=== PATIENT | male | born 1940 | race Caucasian/White ===

== ENCOUNTER 2023-11-24 09:02 | Outpatient (OUT) | payer OTHER, SELFPAY ==
[2023-11-24 09:28] LABS: Basophils Absolute Auto 0.1 10^3/uL (0.0-0.1); Basophils Percent Auto 1.2 % (0.2-2.0); Eosinophils Absolute Auto 0.4 10^3/uL (0.0-0.7); Eosinophils Percent Auto 6.3 % (0.9-7.0); Hematocrit 46.8 % (42.0-54.0); Hemoglobin 15.4 g/dL (14.0-18.0); Immature Granulocytes Abs Auto 0.02 10^3/uL (0.00-0.03); Immature Granulocytes Pct Auto 0.3 % (0.0-0.5); Lymphocytes Absolute Auto 1.7 10^3/uL (1.2-3.8); Mean Corpuscular HGB Conc 32.9 g/dL (29.9-35.2); Mean Corpuscular Hemoglobin 30.1 pg (25.9-34.0); Mean Corpuscular Volume 91.4 fL (80.0-94.0); Mean Platelet Volume 10.4 fL (9.5-13.5); Monocytes Absolute Auto 0.7 10^3/uL (0.3-0.8); Monocytes Percent Auto 12.6 % (1.7-12.0); Neutrophils Absolute Auto 2.9 10^3/uL (1.4-6.5); Neutrophils Percent Auto 50.6 % (43.0-75.0); Platelet Count 205 10^3/uL (150-450); Red Blood Count 5.12 10^6/uL (4.70-6.10); Red Cell Distribution Width 12.8 % (11.0-15.0); White Blood Count 5.7 10^3/uL (4.0-11.0)
[2023-11-24 10:20] LABS: Estimated Average Glucose 108 mg/dL; Glycohemoglobin A1C 5.4 % (4.5-6.2)
[2023-11-24 11:09] LABS: Alanine Aminotransferase 22 U/L (16-63); Albumin Level 3.5 g/dL (3.4-5.0); Alkaline Phosphatase 63 U/L (46-116); Anion Gap 11.1; Aspartate Amino Transferase 14 U/L (15-37); BUN Creatinine Ratio 18.3; Bilirubin Total 0.8 mg/dL (0.2-1.0); Calcium 9.1 mg/dL (8.5-10.1); Carbon Dioxide 30.4 mmol/L (21.0-32.0); Chloride 104 mmol/L (98-107); Chol HDL Ratio 4.5; Cholesterol 162 mg/dL (<=200); Estimated GFR (African America 58 (>=60); Estimated GFR (Non-African Ame 48 (>=60); Free T3 3.06 pg/mL (2.18-3.98); Globulin 3.4 g/dL; Glucose 113 mg/dL (74-106); HDL Cholesterol 36 mg/dL (40-60); Potassium 4.5 mmol/L (3.5-5.1); Sodium 141 mmol/L (136-145); Thyroid Stimulating Hormone 2.661 uIU/mL (0.358-3.740); Total Protein 6.9 g/dL (6.4-8.2); Triglycerides 144 mg/dL (<=150); VLDL CHOLESTEROL 28.8 mg/dL
[2023-11-25 04:07] LABS: PSA, Free 0.06 ng/mL; Prostate Specific Ag 0.2 ng/mL (0.0-4.0)
== END 2023-11-24 09:03 | disposition home or self-care (01) ==
LOC: LAB 09:06
PROVIDERS: PCP Family Medicine; Visit Provider Family Medicine
DX: R53.83 Other fatigue (principal); I10 Essential (primary) hypertension; K21.9 Gastro-esophageal reflux disease without esophagitis; C61 Malignant neoplasm of prostate; E78.5 Hyperlipidemia, unspecified; R73.09 Other abnormal glucose; Z12.12 Encounter for screening for malignant neoplasm of rectum; Z12.5 Encounter for screening for malignant neoplasm of prostate
CPT/HCPCS: 36415; 80053; 80061; 83036; 84153; 84154; 84436; 84443; 84481; 85025

== ENCOUNTER 2023-11-25 14:44 | Outpatient (REF) | payer OTHER, SELFPAY | END 2023-11-25 14:45 | disposition home or self-care (01) | LOC: LAB 14:44 | PROVIDERS: PCP Family Medicine; Visit Provider Family Medicine | DX: Z12.12 Encounter for screening for malignant neoplasm of rectum (principal); R53.83 Other fatigue; I10 Essential (primary) hypertension; K21.9 Gastro-esophageal reflux disease without esophagitis | CPT/HCPCS: G0328 ==

== ENCOUNTER 2023-11-26 09:33 | Outpatient (REF) | payer OTHER, SELFPAY ==
[2023-11-26 14:07] LABS: Occult Blood Positive
== END 2023-11-26 09:34 | disposition home or self-care (01) ==
LOC: LAB 09:33
PROVIDERS: PCP Family Medicine; Visit Provider Family Medicine
DX: R53.83 Other fatigue (principal); K21.9 Gastro-esophageal reflux disease without esophagitis; C61 Malignant neoplasm of prostate; E78.5 Hyperlipidemia, unspecified; R73.09 Other abnormal glucose; Z12.12 Encounter for screening for malignant neoplasm of rectum; Z12.5 Encounter for screening for malignant neoplasm of prostate
CPT/HCPCS: G0328

== ENCOUNTER 2024-12-28 09:14 | Outpatient (OUT) | payer SELFPAY ==
[2024-12-28 10:22] LABS: Basophils Percent Auto 0.3 % (0.2-2.0); Eosinophils Absolute Auto 0.1 10^3/uL (0.0-0.7); Eosinophils Percent Auto 0.5 % (0.9-7.0); Hematocrit 47.2 % (42.0-54.0); Hemoglobin 15.8 g/dL (14.0-18.0); Immature Granulocytes Abs Auto 0.07 10^3/uL (0.00-0.03); Immature Granulocytes Pct Auto 0.5 % (0.0-0.5); Lymphocytes Absolute Auto 1.5 10^3/uL (1.2-3.8); Lymphocytes Percent Auto 10.5 % (20.5-60.0); Mean Corpuscular HGB Conc 33.5 g/dL (29.9-35.2); Mean Corpuscular Hemoglobin 30.2 pg (25.9-34.0); Mean Corpuscular Volume 90.2 fL (80.0-94.0); Mean Platelet Volume 10.8 fL (9.5-13.5); Monocytes Absolute Auto 1.5 10^3/uL (0.3-0.8); Monocytes Percent Auto 10.2 % (1.7-12.0); Neutrophils Absolute Auto 11.5 10^3/uL (1.4-6.5); Platelet Count 222 10^3/uL (150-450); Red Blood Count 5.23 10^6/uL (4.70-6.10); Red Cell Distribution Width 13.3 % (11.0-15.0); White Blood Count 14.7 10^3/uL (4.0-11.0)
[2024-12-28 11:22] LABS: Alanine Aminotransferase 21 U/L (16-63); Albumin Globulin Ratio 1.1; Albumin Level 3.6 g/dL (3.4-5.0); Alkaline Phosphatase 65 U/L (46-116); Anion Gap 8.1; Aspartate Amino Transferase 14 U/L (15-37); BUN Creatinine Ratio 16.9; Bilirubin Total 1.1 mg/dL (0.2-1.0); Calcium 8.7 mg/dL (8.5-10.1); Carbon Dioxide 30.5 mmol/L (21.0-32.0); Chloride 103 mmol/L (98-107); Chol HDL Ratio 4.3; Cholesterol 158 mg/dL (<=200); Estimated GFR (African America 55 (>=60 mL/min/1.73m^2); Estimated GFR (Non-African Ame 45 (>=60 mL/min/1.73m^2); Free T3 2.81 pg/mL (2.18-3.98); Globulin 3.3 g/dL; Glucose 118 mg/dL (74-106); HDL Cholesterol 37 mg/dL (40-60); Potassium 4.6 mmol/L (3.5-5.1); Sodium 137 mmol/L (136-145); Thyroid Stimulating Hormone 1.952 uIU/mL (0.358-3.740); Total Protein 6.9 g/dL (6.4-8.2); Triglycerides 158 mg/dL (<=150); VLDL CHOLESTEROL 31.6 mg/dL
[2024-12-28 11:53] LABS: Estimated Average Glucose 120 mg/dL; Glycohemoglobin A1C 5.8 % (4.5-6.2)
[2024-12-29 04:07] LABS: PSA, Free 0.06 ng/mL; Prostate Specific Ag 0.2 ng/mL (0.0-4.0)
== END 2024-12-28 09:15 | disposition home or self-care (01) ==
LOC: LAB 09:16
PROVIDERS: PCP Family Medicine; Visit Provider Family Medicine
DX: M54.50 Low back pain, unspecified (principal); C61 Malignant neoplasm of prostate; E66.01 Morbid (severe) obesity due to excess calories; N18.31 Chronic kidney disease, stage 3a; K21.9 Gastro-esophageal reflux disease without esophagitis; K52.9 Noninfective gastroenteritis and colitis, unspecified; E78.5 Hyperlipidemia, unspecified; R73.09 Other abnormal glucose; E03.9 Hypothyroidism, unspecified; R53.83 Other fatigue; Z12.5 Encounter for screening for malignant neoplasm of prostate; I50.30 Unspecified diastolic (congestive) heart failure; I12.9 Hypertensive chronic kidney disease with stage 1 through stage 4 chronic kidney disease, or unspecified chronic kidney disease
CPT/HCPCS: 36415; 80053; 80061; 83036; 83880; 84153; 84154; 84436; 84443; 84481; 85025

== ENCOUNTER 2025-06-19 08:31 | Outpatient (OUT) | payer MEDICARE, SELFPAY ==
--- NOTE | 2025-06-19 | XR_ITS ---
[facility] [place] [id number] Patient Name: CAMILA PACE MRN: [id number] date: 1940 Sex: M Assigned Patient Location: [facility] Current Patient Location: [facility] Accession/Order Number: [id number] Exam Date: 06/19/2025 09:35 Report Date: 06/19/2025 10:11 At the request of: PHILOME[place] DO Procedure: XR elbow RT 2V RIGHT ELBOW - 2 VIEWS CLINICAL HISTORY: Right elbow pain posteriorly. No injury. M25.521 COMPARISON: None AP and lateral views were obtained. There is no acute fracture or dislocation. There is minor spurring at the trochlear notch and periphery of the radial head. There are tiny enthesophytes at the humeral epicondyles. Subtle soft tissue calcification is seen in the vicinity of the distal triceps tendon. No elbow effusion is visualized. There is mild posterior soft tissue swelling. Olecranon bursitis is not excluded. XR/XR elbow RT 2V IMPRESSION: MILD DEGENERATIVE CHANGES. NO ACUTE BONY FINDINGS. POSSIBLE OLECRANON BURSITIS. CLINICAL CORRELATION IS SUGGESTED. Impression dictated by: Mary Wyatt M.D. 06/19/2025 10:11 AM Dictation Location: [place] [address] Electronically authenticated by: [id number] Y Date: 06/19/2025 10:11
--- OUTSIDE RECORDS SUMMARY | 2025-06-19 08:34 | XMS_ITS | Clinical Summary ---
Author Organization [facility] Address [address] [place] [address] Phone Care Team Providers Care Director Of Religious Activities Name Role Phone Arya He MD Primary Care Provider [phone] Social History Tobacco UseTypesPacks/DayYears UsedDateSmoking Tobacco: Never AssessedSex and Gender InformationValueDate RecordedSex Assigned at BirthNot on fileLegal Sex Male10/27/2022 8:53 AM EDTGender IdentityNot on fileSexual OrientationNot on file Last Filed Vital Signs Vital SignReadingTime TakenCommentsBlood Zfqzwsmc837/8805 10:47 AM EDT Iskqn409001/07/2023 10:47 AM EDTTemperature--Respiratory Rate--Oxygen Saturation-- Inhaled Oxygen Concentration--Rjoznl389 kg (237 lb)01/07/2023 10:47 AM EDTHeight 182.9 cm (6')01/07/2023 10:47 AM EDTBody Mass Index32.1405 10:47 AM EDT Plan of Treatment Health MaintenanceDue DateLast DoneCommentsLipid Panel1940Yearly Adult Udmfvheg02/01/1941DTaP/Tdap/Td Vaccines (1 - Tdap)1962Pneumococcal Vaccine (1 of 1 - PCV)1990Zoster Vaccines (1 of 2)1990RSV High Risk: (Elderly (60+) or Population) (1 - 1-dose 75+ series)11/16/2015 Influenza Vaccine (#1)5COVID-19 Vaccine (1 - 2024-26 season)2025 HIB VaccinesAged OutNo longer eligible based on patient's age to complete this topicHPV VaccinesAged OutNo longer eligible based on patient's age to complete this topicHepatitis A VaccinesAged OutNo longer eligible based on patient's age to complete this topicHepatitis B VaccinesAged OutNo longer eligible based on patient's age to complete this topicIPV VaccinesAged OutNo longer eligible based on patient's age to complete this topicMeningococcal VaccineAged OutNo longer eligible based on patient's age to complete this topicRotavirus VaccinesAged Out No longer eligible based on patient's age to complete this topic Care Teams Team MemberRelationshipSpecialtyStart DateEnd Date Arya He MD [address] [place] [address] [facility]10/28/22
--- OUTSIDE RECORDS SUMMARY | 2025-06-19 08:34 | XMS_ITS | Patient Health Record ---
Author Organization [facility] in [place] Address [address] [place] [address] Care Team Providers Care Color Tester Name Role Phone Ino He Primary Care Provider Allergies Allergen (clinical drug ingredient) Drug/Non Drug Allergy documented on EMR Reaction Allergy Type Onset Date Status clindamycin Cleocin Unknown Drug Allergy Active Results Component Value Reference Range Notes CBC AUTO DIFF Reviewed date:12/28/2024 07:33:02 PM Interpretation: Performing Lab: Notes/Report: [facility] , White Blood Count 14.7 4.0-11.0 10 3/uL Red Blood Count5.234.70-6.10 10 6/zFWdwhehqnem63.814.0-18.0 g/nKZcepitxahh32.2 42.0-54.0 %Mean Corpuscular Djkfba78.280.0-94.0 fLMean Corpuscular Hemoglobin 30.225.9-34.0 pgMean Corpuscular HGB Conc33.529.9-35.2 g/dLRed Cell Distribution Width13.311.0-15.0 %Platelet Iesdo619058-392 10 3/uLMean Platelet Tlwzwk74.89.5- 13.5 fLNeutrophils Percent Auto78.043.0-75.0 %Lymphocytes Percent Auto10.520.5- 60.0 %Monocytes Percent Auto10.21.7-12.0 %Eosinophils Percent Auto0.50.9-7.0 % Basophils Percent Auto0.30.2-2.0 %Immature Granulocytes Pct Auto0.50.0-0.5 % Neutrophils Absolute Auto11.51.4-6.5 10 3/uLLymphocytes Absolute Auto1.51.2-3.8 10 3/uLMonocytes Absolute Auto1.50.3-0.8 10 3/uLEosinophils Absolute Auto0.10.0- 0.7 10 3/uLBasophils Absolute Auto0.00.0-0.1 10 3/uLImmature Granulocytes Abs Auto0.070.00-0.03 10 3/uLPerforming Lab:see noteML - [facility] LBTSH Reviewed date:12/28/2024 07:33:02 PM Interpretation: Performing Lab: Notes/Report: [facility] ,Thyroid Stimulating Hormone1.9520.358-3.740 uIU/mLPerforming Lab:see noteML - [facility] LBT4 Reviewed date:12/28/2024 07:33:02 PM Interpretation: Performing Lab: Notes/Report: [facility] ,T4 Thyroxine7.704.50-12.10 ug/dLPerforming Lab:see noteML - [facility] LBPROF 14(COMP METB) Reviewed date:12/28/2024 07:33:02 PM Interpretation: Performing Lab: Notes/Report: [facility] ,Gxugqj816947-840 mmol/LPotassium4.63.5-5.1 mmol/SBwwpcsgk81388-384 mmol/LCarbon Wvpcwyx89.521.0-32.0 mmol/LAnion Gap8.1Ncrskvp01803-846 mg/dLBlood Urea Nitrogen 25.07.0-18.0 mg/dLCreatinine1.480.70-1.30 mg/dLEstimated GFR ( Kcgmhzq89 >=60 mL/min/1.73m 2Estimated GFR (Non- Ame45>=60 mL/min/1.73m 2BUN Creatinine Ratio16.9Idjombd9.78.5-10.1 mg/dLBilirubin Total1.10.2-1.0 mg/dL Aspartate Amino Fgqmjytrsaq3985-12 U/LAlanine Lhbhueujieimmahl3282-32 U/L Alkaline Onaoxdnebkf2040-649 U/LTotal Protein6.96.4-8.2 g/dLAlbumin Level3.63.4- 5.0 g/dLGlobulin3.3Albumin Globulin Ratio1.1Performing Lab:see noteML - [facility] LBLIPID PROFILE Reviewed date:12/28/2024 07:33:02 PM Interpretation: Performing Lab: Notes/Report: [facility] ,Fvpsorklogwjj808<=150 mg/sTIbmdejpzleq399<=200 mg/dLHDL Vgmczilxbcm4890-64 mg/dL > or =60 mg/dl - LOW CARDIOVASCULAR RISK <40 mg/dl - HIGH CARDIOVASCULAR RISK LDL Cholesterol Ovpijorkct85.0 130-159 mg/dl BORDERLINE HIGH 100-129 mg/dl NEAR OR ABOVE OPTIMAL >190 mg/dl VERY HIGH <100 mg/dl OPTIMAL 160-189 mg/dl HIGH VLDL BOTDQKRZULJ38.6Chol HDL Ratio4.3 3.3 - 4.4 LOW RISK >11.0 HIGH RISK 7.1 - 11.0 MODERATE RISK 4.4 - 7.1 AVERAGE RISK Performing Lab:see note - [facility] LBFREE T3 Reviewed date:12/28/2024 07:33:02 PM Interpretation: Performing Lab: Notes/Report: [facility] ,Free T32.812.18-3.98 pg/mLPerforming Lab:see note - [facility] LB BNP Reviewed date:12/28/2024 07:33:02 PM Interpretation: Performing Lab: Notes/Report: [facility] ,NT Pro B Type Natriuretic Lgwg622.0<=1800.0 pg/mLPerforming Lab:see note - [facility] LBCOVID-19, Flu A+B IH Reviewed date:12/28/2024 07:33:02 PM Interpretation: Performing Lab: Notes/Report: COVIDNEGFLU ANEGFLU BNEGControlPOSCOVID-19, Flu A+B IH Reviewed date:12/28/2024 07:33:02 PM Interpretation: Performing Lab: Notes/Report: COVIDNEGFLU ANEGFLU BNEGControlPOSPSA Total+% Free Reviewed date:12/29/2024 08:58:15 PM Interpretation: Performing Lab: Notes/Report: [facility] ,Prostate Specific Ag0.20.0-4.0 ng/mL or greater. Values obtained with different assay methods or Ania ECLIA methodology. followed by a subsequent confirmatory PSA value 0.2 ng/mL of malignant disease. recurrence as an initial PSA value 0.2 ng/mL or greater radical prostatectomy. The AUA defines biochemical According to the [employer], Serum PSA should decrease and remain at undetectable levels after interpreted as absolute evidence of the presence or absence kits cannot be used interchangeably. Results cannot be PSA, Free0.06N/A ng/mLRoche ECLIA methodology.% Free PSA30.0. % Customer Development Representative: Madhav Rhodes PhD, Phone: [phone] 0.00-10.00% 56% 55% Performed at: [facility]. [phone]). percent free PSA for any other population 15.01-20.00% 17% 23% 4 and 10 ng/mL, by patient age (Pratibha et al, KATERINE 1998, recommendations regarding the use of 10.01-15.00% 24% 35% Please note: Pratibha et al did not make specific The table below lists the probability of prostate cancer for men with non-suspicious LONNY results and total PSA between [address] [place] [address] [phone] 20.01-25.00% 10% 20% >25.00% 5% 9% % Free PSA 50-64 yr 65-75 yr Performing Lab:see note - [facility] LBGLYCOHEMOGLOBIN A1C Reviewed date:12/28/2024 07:33:02 PM Interpretation: Performing Lab: Notes/Report: [facility] ,Glycohemoglobin A1C5.84.5-6.2 % ADA THERAPEUTIC TARGET < 7.0 ACTION SUGGESTED ADA RECOMMENDED LIMIT 4.0 - 6.0 > 7.0 Estimated Average Vawyllj115Rmlvotfgmm Lab:see noteML - [facility] LB Reason For Referral Diagnosis 1 Right elbow pain (M2 5.521) Referral Organization [facility] Referring Provider First Name Ino Referring Provider Last Name Ying Referring Provider Speciality Family Med icine Referred Provider Manuel Salinas Referred Provider Specialty Orthopedic S urgery General Notes Baylee Miranda 2024 10:44:28 AM >hand printed and faxed Referral Priority Routine Medications Medication SIG (Take, Route, Frequency, Duration) Notes Start Date End Date Status Ventolin HFA 108 (90 Base) MCG/ACT 2 puff as nee ded Inhalation every 4 hrs 5ActiveZyrTEC Allergy 10 MG1 tablet Orally Once a dayActivehydrALAZINE HCl 50 MGTAKE 2 TABLETS BY MOUTH TWICE A DAY; Duration: 90 daysActivepredniSONE 20 MG3 tablets Orally Once a day; Duration: 5 days5ActiveAspir-Low 81 MG1 tablet Orally Once a dayActiveIrbesartan 300 MGTAKE 1 TABLET BY MOUTH EVERY DAY; Duration: 90 daysActiveHyoscyamine Sulfate 0.125 MG1-2 tabs SL SL every 4 hrs PRN abd pain5ActiveCefdinir 300 MG2 capsule Orally once a day; Duration: 10 days5ActiveNitroglycerin 0.4 MGas directed SublingualPRN ActiveMetoprolol Tartrate 100 MGTAKE 1 TABLET BY MOUTH TWICE A DAY; Duration: 90 daysActivePantoprazole Sodium 40 MG1 tablet Orally Once a day; Duration: 90 days ActiveNorvasc 5 MG1 tablet Orally Once a day; Duration: 90 days4Active Protonix 40 MG1 tablet Orally Once a day; Duration: 30 days5Active Social History Tobacco Use: Social History Observation Description Date Details (start date - stop date) Former Smoker NA - NA Tobacco Use/Smoking Question Answer Notes Patient is a former smoker How long has it been since you last smoked?> 10 yearsAlcohol Screen (Audit-C) Question Answer Notes Did you have a drink containing alcohol in the p ast year? Yes How often did you have 6 or more drinks on one occasion in the past year?Never (0 point)How many drinks did you have on a typical day when you were drinking in the past year?1 or 2 drinks (0 point)How often did you have a drink containing alcohol in the past year?Monthly (2 points)Jzmoxw5GofipumwhfgfthSisutwbfMQKGL-I (Standard) Question Answer Notes Did you have a drink containing alcohol in the p ast year? No Skagtx0UnluchaldihnyuJxcbgyup Problems Problem Type SNOMED Code ICD Code Onset Dates Problem Status W/U Status Risk Notes Problem Morbid obesity (disorder) (48095 6002) Morbid (severe) obesity due to excess calories (E66.01) ActiveconfirmedProblemAcute frontal sinusitis (30349142)Acute recurrent frontal sinusitis (J01.11)ActiveconfirmedProblemBlood chemistry abnormal (807975779) Other specified abnormal findings of blood chemistry (R79.89)Activeconfirmed ProblemBlood chemistry abnormal (913581754)Abnormal finding of blood chemistry, unspecified (R79.9)ActiveconfirmedProblemFatigue (39775333)Fatigue (R53.83) ActiveconfirmedProblemEczema (43233792)Eczema (L30.9)ActiveconfirmedProblemAnkle pain (365463066)Ankle pain (M25.579)ActiveconfirmedProblemBenign essential hypertension (1966363)Benign essential hypertension (I10)ActiveconfirmedProblem Impacted cerumen (19896474)Cerumen impaction (H61.20)ActiveconfirmedProblemAcute bronchitis (35212102)Acute bronchitis (J20.9)ActiveconfirmedProblemWell adult (623002036)Well adult (Z00.00)ActiveconfirmedProblemHemorrhoids (10803650) Hemorrhoids (K64.9)ActiveconfirmedProblemPlantar fasciitis (853959892)Plantar fasciitis (M72.2)ActiveconfirmedProblemCervical spondylosis (153347984)Cervical spondylosis (M47.812)ActiveconfirmedProblemTension headache (025032321)Tension headache (G44.209)ActiveconfirmedProblemShoulder pain (55857164)Pain in shoulder (M25.519)ActiveconfirmedProblemAnkle edema (61324225)Ankle edema (R60.0)Active confirmedProblemOlecranon bursitis (591883743)Olecranon bursitis (M70.20)Active confirmedProblemAdenocarcinoma of prostate (613955483)Adenocarcinoma of prostate (C61)ActiveconfirmedProblemCold feet (519904182)Cold feet (R20.9)Activeconfirmed ProblemGastro-esophageal reflux disease (396130749)Gastro-esophageal reflux disease (K21.9)ActiveconfirmedProblemShoulder impingement syndrome (372869592) Shoulder impingement syndrome (M75.40)ActiveconfirmedProblemCobalamin deficiency (175792428)Cobalamin deficiency (E53.8)ActiveconfirmedProblemCOVID-19 (136798274)COVID-19 (U07.1)ActiveconfirmedProblemChronic kidney disease stage 3A (disorder) (118005515)Chronic kidney disease, stage 3a (N18.31)Activeconfirmed ProblemLow back pain (475299132)Low back pain, unspecified (M54.50)Active confirmed Vital Signs Temperature 98.8 degrees Fahrenheit 12/16/2024 Blood pressure eopitzdda10 mm Hg02/22/20259339Ixrhbz00 in02/22/2025lood pressure xrufnrtn232 mm Hg02/22/20253537Qewnwn089.8 lbs02/22/2025BMI35.26 kg/m202/22/2025 Encounters Encounter Location Date Provider Diagnosis [address] [address] 09/30/2024 Ino Hoy Acute bronchitis J20 .9 and Cough R05.[address] [address] 12/16/2024 Ino Hoy Adenocarcinoma of pr ostate C61 ; Acute bronchitis, unspecified organism J20.9 ; Acute non-recurrent sinusitis, unspecified location J01.90 and Nasal congestion R09.[address] [address] 12/28/2024 Ino Hoy Adenocarcinoma of pr ostate C61 ; Morbid (severe) obesity due to excess calories E66.01 ; Chronic kidney disease, stage 3a N18.31 ; Benign essential hypertension I10 ; Gastro-esophageal reflux disease K21.9 ; Low back pain, unspecified M54.50 and Gastroenteritis K52.[address] [address] 02/22/2025 Ino Hoy Olecranon bursitis M 70.20 and Cold feet R20.[address] [address] 08/26/2024 Ino Hoy Benign essential hypertension I10 [facility] [address] [place] [address] 12/28/2024 Ino He [facility] [place] [address] 06/02/2025Doug HoyRight elbow pain M25.521 Assessments Encounter Date Diagnosis (ICD Code) Assessment Notes Treatment Notes Treatment Clinical Notes Section Notes 09/30/2024 Acute bronchitis (ICD-10 - J20.9 ) 09/30/2024ough (ICD-10 - R05.9)12/28/2024denocarcinoma of prostate (ICD-10 - C61)12/28/2024Morbid (severe) obesity due to excess calories (ICD-10 - E66.01) 12/16/2024denocarcinoma of prostate (ICD-10 - C61)02/22/2025Olecranon bursitis (ICD-10 - M70.20)steroids - ab02/22/2025old feet (ICD-10 - R20.9)abi08/26/2024 Benign essential hypertension (ICD-10 - I10)06/02/2025Right elbow pain (ICD-10 - M25.521)12/16/2024ute bronchitis, unspecified organism (ICD-10 - J20.9)Rest and drink more liquids, especially water. You may use a humidifier or vaporizer to help keep the drainage moist. Semn-xqk-vsnvjpa Nasal Saline may help the stuffy and runny nose. Use Ibuprofen and or Tylenol as needed for fever, chills, body aches or pain. Children 5 years old should not be given ywyz-ugc-xmpkqjv cough and cold medications such as guaifenesin and dextromethorphan. If you're o rosie age 5, you may try cija-nfo-jhktbbu cold medications such as guaifenesin and dextromethorphan, or multi-symptom cold reliever such as Dayquil to help reduce the symptoms. Antibiotics have been prescribed. You should take these until completed and follow the directions. Antibiotics can sometimescause upset stomach, and in rare cases, serious allergic reactions or serious gastrointestinal problems. If you start having severe abdominal pain, severe vomiting, or bloody diarrhea, you should be reevaluated by your physician or urgent care immediately. Follow up with your Primary Care Provider or return to clinic if symptoms do not improve within 3-5 days. If you develop severe symptoms such as shortness of breath, repeated vomiting, coughing up blood, or chest pain you should go to the emergency room or call 49460hronic kidney disease, stage 3a (ICD-10 - N18.31)5Benign essential hypertension (ICD-10 - I10)5Acute non-recurrent sinusitis, unspecified location (ICD-10 - J01.90)Rest and drink more liquids, especially water. You may use a humidifier or vaporizer to help keep the drainage moist. Rbes-zpt-czjpwxe Nasal Saline may help the stuffy and runny nose. Use Ibuprofen and or Tylenol as needed for fever, chills, body aches or pain. Children 5 years old should not be given tewk-mwi-jryxxpz cough and cold medications such as guaifenesin and dextromethorphan. If you're over age 5, you may try iegs-lhr-oozyusb cold medications such as guaifenesin and dextromethorphan, or multi-symptom cold reliever such as Dayquil to help reduce the symptoms. Antibiotics have been pre scribed. You should take these until completed and follow the directions. Antibiotics can sometimescause upset stomach, and in rare cases, serious allergic reactions or serious gastrointestinal problems. If you start having severe abdominal pain, severe vomiting, or bloody diarrhea, you should be r eevaluated by your physician or urgent care immediately. Follow up with your Primary Care Provider or return to clinic if symptoms do not improve within 3-5 days12/16/2024Nasal congestion (ICD-10 - R09.81)12/28/2024Gastro-esophageal reflux disease (ICD-10 - K21.9)12/28/2024Low back pain, unspecified (ICD-10 - M54.50)12/28/2024Gastroenteritis (ICD-10 - K52.9) Plan Of Treatment Pending Test Test Name Order Date CMP (COMPLETE METABOLIC PANEL) 3 CMP (COMPLETE METABOLIC PANEL) 4 HEMOGLOBIN A1C (GLYCO) 12/28/2024 HEMOGLOBIN A1C (GLYCO) 12/19/2022 HEMOGLOBIN A1C (GLYCO) 11/24/2023 LIPID PANEL (CHOL/TRIG/HDL/LDL) 11/24/19 24 LIPID PANEL (CHOL/TRIG/HDL/LDL) 12/20/19 23 LIPID PANEL (CHOL/TRIG/HDL/LDL) 12/29/19 25 CBC WITH DIFF 12/19/2022 CBC WITH DIFF 11/24/2023 PSA, PROSTATE-SPECIFIC ANTIGEN 3 PSA-FREE AND TOTAL 12/28/2024 PSA, TOTAL 11/24/2023 STOOL OCCULT BLOOD 11/24/2023 PROF CHEM 8 (BAS METB) 12/19/2022 THYROID PANEL (T4/TSH/FREE T3) 4 THYROID PANEL (T4/TSH/FREE T3) 5 THYROID PANEL (T4/TSH/FREE T3) 3 Free PSA 11/24/2023 CMP (COMP MET DRUMMOND) w/eGFR CKD-EPI 2024 CBC WITH DIFF 12/28/2024 Insurance Providers Payer Name Payer Address Payer Phone Subscriber Number Group Number Insured Name Patient Relationship to Insured Coverage Start Date Coverage End Date MMO [employer] E HMO [address] [place] [address] [id number] Sherron Mallory - patient is the insured Medications Administered Medication Instructions Date of Administration Dosage Notes Dexamethasone, 4mg/mL 2 mgTriamcinolone 40 mg/ml20 mg Medical (General) History Medical History History ICD Code Ankle edema R60.0 COVID-19 U07.1 Benign essential hypertension I10 Acute bronchitis J20.9 Cervical spondylosis M47.812 Tension headache G44.209 Eczema L30.9 Gastro-esophageal reflux disease K21.9 Shoulder impingement syndrome M75.40 Fatigue R53.83 Cerumen impaction H61.20 Acute recurrent frontal sinusitis J01.11 Pain in shoulder M25.519 Cobalamin deficiency E53.8 Well adult Z00.00 Low back pain, unspecified M54.50 Plantar fasciitis M72.2 Ankle pain M25.579 Adenocarcinoma of prostate C61 Hemorrhoids K64.9 Surgical History Surgery Date(Month/Year) Appendectomy Prostate CancerGall Bladder Removal
== END 2025-06-19 08:32 | disposition home or self-care (01) ==
LOC: RAD 08:31
PROVIDERS: PCP Family Medicine; Visit Provider Orthopaedic Surgery Orthopaedic Trauma
DX: M25.521 Pain in right elbow (principal)
CPT/HCPCS: 73070